=== PATIENT | female | born 1995 | race Caucasian/White ===

== ENCOUNTER 2019-04-01 07:29 | Emergency (ER) | payer SELFPAY ==
[2019-04-01] MEDS: LIDOCAINE/MYLANTA 40 ML BTL PO (08:02)
[2019-04-01] MEDS: LORAZEPAM 1 MG TAB PO (08:03)
== END 2019-04-01 09:07 | disposition home or self-care (01) ==
LOC: FTE 09:07
DX: K21.9 Gastro-esophageal reflux disease without esophagitis (principal); J45.909 Unspecified asthma, uncomplicated
CPT/HCPCS: 93005; 99283-25